=== PATIENT | female | born 1985 | race African-American/Black ===

== ENCOUNTER → 2016-10-16 | Outpatient (CLI) | payer OTHER ==
[~2016-10-16] MED LIST: ADALAT CC30 MG PO; MOTRIN 600600 MG/TAB PO; NATURAL IRON65 MG PO; NO HOME MEDICATIONS; PERCOCET 325 MG1 TA2 PO; PRENATAL
== END ==
LOC: COL.RAD 10-12 09:45
DX: E04.1 Nontoxic single thyroid nodule (principal)

== ENCOUNTER → 2019-06-22 | Outpatient (CLI) | payer OTHER | LOC: ZCOL.LAB 17:53 | DX: L72.3 Sebaceous cyst (principal) ==

== ENCOUNTER → 2023-05-06 | Outpatient (CLI) | payer OTHER | LOC: COL.RAD 12:08 | DX: N13.30 Unspecified hydronephrosis (principal); R10.11 Right upper quadrant pain ==